=== PATIENT | male | born 1965 | race Caucasian/White ===

== ENCOUNTER → 2023-10-03 10:32 | Outpatient (REF) | payer OTHER, SELFPAY | LOC: RAD 10:32 | PROVIDERS: ATTENDING PHYSICIAN Physician Assistant | DX: R06.02 Shortness of breath (principal); Z87.09 Personal history of other diseases of the respiratory system | CPT/HCPCS: 71046 ==

== ENCOUNTER → 2023-10-15 08:09 | Outpatient (REF) | payer OTHER, SELFPAY | LOC: HWRCS 08:09 | PROVIDERS: ATTENDING PHYSICIAN Physician Assistant | DX: R06.02 Shortness of breath (principal); R01.1 Cardiac murmur, unspecified; D50.9 Iron deficiency anemia, unspecified | CPT/HCPCS: 93306 ==

== ENCOUNTER → 2025-05-18 07:16 | Outpatient (REF) | payer OTHER, SELFPAY | LOC: MRI 3T 07:16 | PROVIDERS: ATTENDING PHYSICIAN Psychiatry & Neurology Neurology | DX: R41.3 Other amnesia (principal) | CPT/HCPCS: 70551 ==

== ENCOUNTER → 2025-06-08 12:35 | Outpatient (REF) | payer OTHER, SELFPAY | LOC: RAD 12:35 | PROVIDERS: ATTENDING PHYSICIAN Physician Assistant | DX: R10.84 Generalized abdominal pain (principal); R63.4 Abnormal weight loss; R19.7 Diarrhea, unspecified | CPT/HCPCS: 71270; 74178; Q9967 ==